=== PATIENT | female | born 1950 | race African-American/Black ===

== ENCOUNTER → 2019-12-11 | Day surgery (SDC) | payer MEDICARE ==
[2019-12-07 12:13] LABS: BASOPHILS % 0.5 % (0.0-1.0); EOSINOPHILS # (AUTO) 0.3 (0.0-0.4); EOSINOPHILS % 3.5 % (0.0-6.0); HEMATOCRIT 40.1 % (34.2-44.1); HEMOGLOBIN 12.8 g/dL (12.0-16.0); LYMPHOCYTES # (AUTO) 2.8 (1.0-3.2); LYMPHOCYTES % 31.8 % (18.0-39.1); MEAN CORPUSCULAR HEMOGLOBIN 31.8 pg (28-32); MEAN CORPUSCULAR HGB CONC 31.9 g/dL (31-35); MEAN CORPUSCULAR VOLUME 99.8 fL (81-99); MONOCYTES # (AUTO) 0.8 (0.2-0.8); MONOCYTES % 8.7 % (4.4-11.3); NEUTROPHILS # (AUTO) 4.9 (2.1-6.9); NEUTROPHILS % 55.2 % (38.7-80.0); PLATELET COUNT 310 x10e3/uL (140-360); RED BLOOD COUNT 4.02 x10e6/uL (3.6-5.1); RED CELL DISTRIBUTION WIDTH 12.7 % (11.7-14.4)
[~2019-12-11] MED LIST: AMBIEN10 MG PO; AMLODIPINE BESYL5 MG PO; ASPIR 8181 MG PO; BIOTENE MOIST44.3 ML PO; CYMBALTA30 MG PO; DICYCLOMINE HCL10 MG PO; FENTANYL CITRATE/PF 100MCG/2 ML INJ IV ONE; FLONASE; FUROSEMIDE40 MG PO; GABAPENTIN300 MG PO; IPRATROPIUM NASAL; LINZESS PO; MAGNESIUM PO; PANTOPRAZOLE SO40 MG PO; POTASSIUM PO; PRAVASTATIN SOD10 MG PO; PROPOFOL IV EMULSION 10 MG/ML 50 ML VIAL ONE; TACROLIMUS1 MG PO; TYLENOL PO; ULTRAM 50MG50 MG PO; VIT B12 PO; VIT D3 PO; ZEBETA10 MG PO; [UNRECOGNIZED DRUG - OTHER] PO
--- OUTSIDE RECORDS SUMMARY | 2019-12-11 07:53 | XMS REPORT ---
Author Author [facility] Address Unknown Phone Unavailable Care Team Providers Care Anesthesiology Teacher Name Role Phone PAMELA CHATMAN PP Unavailable Problems This patient has no known problems. Allergies, Adverse Reactions, Alerts This patient has no known allergies or adverse reactions. Medications This patient has no known medications. Encounters Start Date/Time End Date/Time Encounter Type Admission Type Attending Clinicians Care Facility Care Department Encounter ID 2017-09-09 19:58:00 2017-09-09 19:58:00 Outpatient [id number] [id number] Results Test Description Test Time Test Comments Text Results Atomic Results Result Comments TOMOSYNTHESIS + UNILAT RT 2018-02-22 16:09:[address] [id number] IMAGING REPORTPatient Name: LISA GOMEZ MDate of Service: [id number]: 67 Sex: F Order #: [id number] [facility] 1950 X-[facility] Number: [id number] Record Number: [id number] Hospital Number: [id number] Physician: PAMELA CHATMANOrdering Physician: JENNIFER CHATMAN DIGITAL MAMMOGRAM DIAGNOSTIC WITH DIGITAL TOMOSYNTHESIS AND RIGHTBREAST ULTRASOUND COMPLETECOMPARISON: None availableLHISTORY: Right breast mass.COPRA SAMPLER: RT Jimmy RSONOGRAPHER: [place] RDMSFINDINGS: Digital tomosynthesis was performed and utilized for theinterpretation of the current examination.BREAST DENSITY: heterogeneously dense which could obscure small masses.There is no evidence for dominant mass, architectural distortion withspiculation or suspicious clustered microcalcification.All 4 quadrants of the right breast, retroareolar and axillary regionswere examined sonographically.Ultrasound demonstrates no evidence for massor cyst. Echotexture is normal.IMPRESSION:BI- RADS CATEGORY - 2, benign findings.FOLLOW UP:12 month follow-up mammogram is recommended.PLEASE NOTE:1. In up to 10% of patient's, cancers are not visible on mammography.2. If a suspicious lump is palpated, biopsy should not be deferred becauseof a negative mammogram.MAMMOGRAPHY AT [facility] IS ACCREDITED BY THE AMERICANCOLLEGE OF RADIOLOGYTHANK YOU FOR YOUR OUTPATIENT REFERRALjhbElectronically Signed By: Live Carvalho M.D., 02/22/2018 4:05 PMLegally authenticated by THANG ESCOBAR 2018-02-22 16:05:29 ULTRASOUND BREAST 2018-02-22 16:08:00 [facility] [place], [place] [address]CJBKGOLDAL IMAGING REPORTPatient Name: LISA GOMEZ MDate of Service: [id number]: 67 Sex: F Order #: [id number] Room: PDOB: 1950 X-Ray Number: [id number] Record Number: [id number] Hospital Number: [id number] Physician: PAMELA CHATMANOrdering Physician: JENNIFER CHATMAN DIGITAL MAMMOGRAM DIAGNOSTIC WITH DIGITAL TOMOSYNTHESIS AND RIGHTBREAST ULTRASOUND COMPLETECOMPARISON: None availableLHISTORY: Right breast mass.COPRA SAMPLER: RT Jimmy RSONOGRAPHER: [place] RDMSFINDINGS: Digital tomosynthesis was performed and utilized for theinterpretation of the current examination.BREAST DENSITY: heterogeneously dense which could obscure small masses.There is no evidence for dominant mass, architectural distortion withspiculation or suspicious clustered microcalcification.All 4 quadrants of the right breast, retroareolar and axillary regionswere examined sonographically.Ultrasound demonstrates no evidence for massor cyst. Echotexture is normal.IMPRESSION:BI-RADS CATEGORY - 2, benign findings.FOLLOW UP:12 month follow-up mammogram is recommended.PLEASE NOTE:1. In up to 10% of patient's, cancers are not visible on mammography.2. If a suspicious lump is palpated, biopsy should not be deferred becauseof a negative mammogram.MAMMOGRAPHY AT [facility] IS ACCREDITED BY THE AMERICANCOLLEGE OF RADIOLOGYTHANK YOU FOR YOUR OUTPATIENT REFERRALjhbElectronically Signed By: Live Carvalho M.D., 02/22/2018 4:05 PMBIRADSLegally authenticated by THANG ESCOBAR 2018-02-22 16:05:29
[2019-12-11 11:39] VITALS: BP 128/83
== END | disposition home or self-care (01) ==
LOC: OR 07:45
PROVIDERS: ATTEND Internal Medicine Gastroenterology
DX: K29.70 Gastritis, unspecified, without bleeding (principal); K31.7 Polyp of stomach and duodenum; K20.9 Esophagitis, unspecified; Q39.6 Congenital diverticulum of esophagus; K21.9 Gastro-esophageal reflux disease without esophagitis; K59.00 Constipation, unspecified; Z98.890 Other specified postprocedural states; G47.33 Obstructive sleep apnea (adult) (pediatric); N05.9 Unspecified nephritic syndrome with unspecified morphologic changes; M19.90 Unspecified osteoarthritis, unspecified site; H91.90 Unspecified hearing loss, unspecified ear; K44.9 Diaphragmatic hernia without obstruction or gangrene; I10 Essential (primary) hypertension; I34.1 Nonrheumatic mitral (valve) prolapse; E78.5 Hyperlipidemia, unspecified; R00.1 Bradycardia, unspecified; F41.9 Anxiety disorder, unspecified; F32.9 Major depressive disorder, single episode, unspecified; Z88.6 Allergy status to analgesic agent; Z01.810 Encounter for preprocedural cardiovascular examination; Z01.812 Encounter for preprocedural laboratory examination; Z79.82 Long term (current) use of aspirin; Z68.31 Body mass index [BMI] 31.0-31.9, adult
CPT/HCPCS: 36415; 43239; 85025; 93005; J2704; J3010

== ENCOUNTER → 2020-01-22 | Day surgery (SDC) | payer MEDICARE ==
[2020-01-15 13:04] LABS: BASOPHILS % 0.7 % (0.0-1.0); EOSINOPHILS # (AUTO) 0.2 (0.0-0.4); EOSINOPHILS % 3.4 % (0.0-6.0); HEMATOCRIT 38.3 % (34.2-44.1); HEMOGLOBIN 12.6 g/dL (12.0-16.0); LYMPHOCYTES # (AUTO) 2.3 (1.0-3.2); LYMPHOCYTES % 39.1 % (18.0-39.1); MEAN CORPUSCULAR HEMOGLOBIN 31.7 pg (28-32); MEAN CORPUSCULAR HGB CONC 32.9 g/dL (31-35); MEAN CORPUSCULAR VOLUME 96.5 fL (81-99); MONOCYTES # (AUTO) 0.6 (0.2-0.8); MONOCYTES % 9.8 % (4.4-11.3); NEUTROPHILS # (AUTO) 2.8 (2.1-6.9); NEUTROPHILS % 46.3 % (38.7-80.0); PLATELET COUNT 318 x10e3/uL (140-360); RED BLOOD COUNT 3.97 x10e6/uL (3.6-5.1); RED CELL DISTRIBUTION WIDTH 12.5 % (11.7-14.4)
[~2020-01-22] MED LIST changes: -FENTANYL CITRATE/PF 100MCG/2 ML INJ IV ONE; +GLUCAGON FOR INJ 1 MG VIAL ONE
[2020-01-22 16:00] VITALS: BP 127/91
== END | disposition home or self-care (01) ==
LOC: OR 13:12
PROVIDERS: ATTEND Internal Medicine Gastroenterology
DX: Z12.11 Encounter for screening for malignant neoplasm of colon (principal); K31.7 Polyp of stomach and duodenum; K57.30 Diverticulosis of large intestine without perforation or abscess without bleeding; K64.8 Other hemorrhoids; K59.00 Constipation, unspecified; K29.70 Gastritis, unspecified, without bleeding; Q39.6 Congenital diverticulum of esophagus; K21.9 Gastro-esophageal reflux disease without esophagitis; R13.10 Dysphagia, unspecified; G47.33 Obstructive sleep apnea (adult) (pediatric); R07.9 Chest pain, unspecified; I12.9 Hypertensive chronic kidney disease with stage 1 through stage 4 chronic kidney disease, or unspecified chronic kidney disease; N18.9 Chronic kidney disease, unspecified; I34.1 Nonrheumatic mitral (valve) prolapse; F32.9 Major depressive disorder, single episode, unspecified; F41.9 Anxiety disorder, unspecified; Z01.812 Encounter for preprocedural laboratory examination; Z88.6 Allergy status to analgesic agent; Z79.899 Other long term (current) drug therapy; Z79.82 Long term (current) use of aspirin; Z68.32 Body mass index [BMI] 32.0-32.9, adult
CPT/HCPCS: 36415; 85025; G0121; J1610; J2704; 45378